=== PATIENT | female | born 1945 | race Caucasian/White ===

== ENCOUNTER → 2017-04-10 13:20 | Outpatient (CLI) | payer MEDICARE, SELFPAY ==
--- NOTE | 2017-04-10 15:08 | NEURO ---
NCS and/or EMG Patient Report Ordering Doctor: Spencer Galvin DATE OF SERVICE: 04/10/17 Bridget Martins is a 71 year old female who presents with chief complaint of numbness in the thumbs bilaterally. Symptoms began spontaneously 2-3 months ago Electrodiagnostic findings: normal median motor and ulnar studies bilaterally. No significant decrease in ulnar conduction across the elbow. Sensory responses are within normal limits. Needle EMG testing reveals no evidence of denervation with normal motor unit action potentials. Electrodiagnostic Impression: This is a normal study in the upper limbs. No evidence of peripheral neuropathy, including carpal tunnel or cubital tunnel syndrome. If there are any further questions please do not hesitate to contact me.
== END ==
PROVIDERS: Family Provider Family Medicine; PCP Family Medicine; Visit Provider Orthopaedic Surgery
DX: R20.2 Paresthesia of skin (principal)
CPT/HCPCS: 95886; 95912

== ENCOUNTER → 2017-05-22 14:11 | Outpatient (CLI) | payer MEDICARE, SELFPAY ==
--- NOTE | 2017-05-22 14:14 | RAD_ITS ---
STUDY: X-RAY CHEST REASON FOR EXAM: Female, 71 years old. numbness and tingling in upper extremities, hx tobacco use TECHNIQUE: Frontal and lateral views of the chest. COMPARISON: January 18, 2015 FINDINGS: Chronic appearing increased interstitial lung markings. There is no demonstrated pleural abnormality. Normal heart size. Normal mediastinum and morgan. Normal visualized pulmonary arteries. There is atherosclerotic calcification of the aortic arch with tortuosity. There are diffuse degenerative changes of the visualized thoracic spine. There is degenerative osteoarthritis of the bilateral shoulders. There is no demonstrated abnormality of the visualized soft tissue structures of the upper abdomen. RAD/Chest PA and Lateral IMPRESSION: There are no acute findings. Electronically Signed: Mello Millan MD at 16:52 EDT , Service support ,
[2017-05-22 15:46] LABS: Absolute Lymphocyte Count 2.22 X10^3/ul (0.83-4.51); Absolute Neutrophil Count 4.7 X10^3/uL (2.0-7.7); Basophil# 0.02 X10^3/uL; Basophil% 0.3 % (0-1); Eosinophil# 0.19 X10^3/uL; Eosinophils% 2.5 % (0-5); Hematocrit 45.4 % (37-47); Hemoglobin 14.8 g/dl (12.0-15.0); Lymphocyte # 2.22 X10^3/ul (4.0); Lymphocyte % 28.9 % (19-41); Mean Corp Hgb Conc 32.6 g/gl (32-36); Mean Corpuscular Hgb 30.1 pg (27.0-32.0); Mean Corpuscular Volume 92.5 fL (81-99); Mean Platelet Vol. 8.7 fl (6.2-12.0); Monocyte# 0.51 X10^3/uL; Monocyte% 6.6 % (0-10); Neutrophil # 4.71 X10^3/uL (2.7-7.7); Neutrophil % 61.3 % (47-70); Platelet Count 279 K/mm3 (150-450); RBC Distribution Width CV 13.3 % (11.6-14.6); RBC Distribution Width SD 44.6 fl (35.1-43.9); Red Blood Count 4.91 M/mm3 (4.2-5.4); White Blood Count 7.7 K/mm3 (4.4-11.0)
[2017-05-22 15:49] LABS: POSITIVE COUNT NO; POSITIVE DIFFERENTIAL NO; POSITIVE MORPHOLOGY NO
[2017-05-22 16:03] LABS: Erythrocyte Sedimentation Rate 11 mm/hr (0-30)
[2017-05-22 16:08] LABS: Vitamin B12 602 pg/mL (211-911)
[2017-05-22 16:19] LABS: ALB/GLOB Ratio 1.3 RATIO (0.9-2.4); AST(SGOT) 15 U/L (15-37); Alanine Aminotransfer ALT/SGPT 25 U/L (13-56); Albumin, Serum 3.8 g/dL (3.2-5.0); Alkaline Phosphatase 95 U/L (45-117); Anion Gap 8 (5-15); BUN 15 mg/dL (7-18); BUN/Creat Ratio 15.8 RATIO (10-20); CRP < 2.90 mg/L (0.0-3.0); Calcium,Total 8.7 mg/dL (8.5-10.1); Chloride 105 mmol/L (98-107); Creatinine, Serum 0.95 mg/dL (0.55-1.02); EST Glomerular Filtration Rate 62 mL/min (>60); Est Glom Filt Rate - Afr Amer 75 mL/min (>60); Globulin 2.9 g/dL (2.2-4.2); Glucose 104 mg/dL (74-106); Potassium 3.5 mmol/L (3.5-5.1); Protein, Total 6.7 g/dL (6.4-8.2); Rheumatoid Factor < 10.0 IU/mL (<15); Sodium Level 142 mmol/L (136-145); Thyroid Stim Hormone (TSH) 1.82 uIU/mL (0.358-3.74)
[2017-05-22 21:50] LABS: Cholesterol 191 mg/dL (200); High Density Lipoprotein 42 mg/dL; Triglycerides 376 mg/dL; Very Low Density Lipoprotein 75 mg/dL (5-40)
[2017-05-24 16:11] LABS: PROEL- A/G Ratio 1.6 (0.7-1.7); PROEL- Alpha-1 Globulin 0.2 g/dL (0.0-0.4); PROEL- Alpha-2 Globulin 0.8 g/dL (0.4-1.0); PROEL- Beta Globulin 0.9 g/dL (0.7-1.3); PROEL- Gamma Globulin 0.6 g/dL (0.4-1.8); PROEL- Globulin, Total 2.5 g/dL (2.2-3.9); PROEL- TOTAL PROTEIN 6.5 g/dL (6.0-8.5)
[2017-05-26 06:17] LABS: ANTINUCLEAR ANTIBODIES DIRECT Negative (Negative)
== END ==
PROVIDERS: Family Provider Family Medicine; PCP Family Medicine; Visit Provider Family Medicine
DX: E78.00 Pure hypercholesterolemia, unspecified (principal); R20.2 Paresthesia of skin; F17.200 Nicotine dependence, unspecified, uncomplicated
CPT/HCPCS: 36415; 71046; 80053; 80061; 82607; 82746; 84165; 84443; 84450; 84460; 85025; 85652; 86038; 86140; 86431

== ENCOUNTER → 2017-09-23 10:07 | Outpatient (CLI) | payer MEDICARE, SELFPAY ==
[2017-09-23 12:34] LABS: AST(SGOT) 22 U/L (15-37); Alanine Aminotransfer ALT/SGPT 31 U/L (13-56); Cholesterol 180 mg/dL (200); High Density Lipoprotein 54 mg/dL; Triglycerides 178 mg/dL; Very Low Density Lipoprotein 36 mg/dL (5-40)
== END ==
PROVIDERS: Family Provider Family Medicine; PCP Family Medicine; Visit Provider Family Medicine
DX: E78.00 Pure hypercholesterolemia, unspecified (principal)
CPT/HCPCS: 36415; 80061; 84450; 84460

== ENCOUNTER → 2018-10-03 | Outpatient (CLI) | payer MEDICARE, SELFPAY ==
[2018-10-03 10:46] LABS: ALB/GLOB Ratio 1.6 RATIO (0.9-2.4); AST(SGOT) 17 U/L (15-37); Alanine Aminotransfer ALT/SGPT 23 U/L (13-56); Alkaline Phosphatase 106 U/L (45-117); Anion Gap 9 (5-15); BUN 20 mg/dL (7-18); BUN/Creat Ratio 20.8 RATIO (10-20); Calcium,Total 9.3 mg/dL (8.5-10.1); Chloride 104 mmol/L (98-107); Cholesterol 183 mg/dL (200); Creatinine, Serum 0.96 mg/dL (0.55-1.02); EST Glomerular Filtration Rate 61 mL/min (>60); Est Glom Filt Rate - Afr Amer 74 mL/min (>60); Globulin 2.5 g/dL (2.2-4.2); Glucose 104 mg/dL (74-106); High Density Lipoprotein 48 mg/dL; Potassium 4.2 mmol/L (3.5-5.1); Protein, Total 6.5 g/dL (6.4-8.2); Sodium Level 142 mmol/L (136-145); Triglycerides 175 mg/dL; Very Low Density Lipoprotein 35 mg/dL (5-40)
== END | disposition home or self-care (01) ==
LOC: MFPLAB 08:20
PROVIDERS: Family Provider Family Medicine; PCP Family Medicine; Referring Provider Family Medicine; Visit Provider Nurse Practitioner Family
DX: Z00.00 Encounter for general adult medical examination without abnormal findings (principal)
CPT/HCPCS: 36415; 80053; 80061

== ENCOUNTER → 2019-04-06 | Outpatient (CLI) | payer MEDICARE, SELFPAY ==
[2019-04-06 12:53] LABS: AST(SGOT) 16 U/L (15-37); Alanine Aminotransfer ALT/SGPT 22 U/L (13-56); Cholesterol 175 mg/dL (200); High Density Lipoprotein 47 mg/dL; Prolactin 10.7 ng/mL; Thyroid Stim Hormone (TSH) 1.82 uIU/mL (0.358-3.74); Triglycerides 139 mg/dL; Very Low Density Lipoprotein 28 mg/dL (5-40)
[2019-04-07 09:13] LABS: DHEA Sulfate 93.4 ug/dL (20.4-186.6)
== END | disposition home or self-care (01) ==
LOC: MFPLAB 09:47
PROVIDERS: PCP Family Medicine; Referring Provider Family Medicine; Visit Provider Family Medicine
DX: E78.5 Hyperlipidemia, unspecified (principal); L65.9 Nonscarring hair loss, unspecified
CPT/HCPCS: 36415; 80061; 82627; 84146; 84443; 84450; 84460; 82626

== ENCOUNTER → 2020-06-07 10:20 | Outpatient (CLI) | payer MEDICARE, SELFPAY ==
[2020-06-07 13:02] LABS: AST(SGOT) 19 U/L (15-37); Alanine Aminotransfer ALT/SGPT 27 U/L (13-56); Cholesterol 167 mg/dL (200); High Density Lipoprotein 49 mg/dL; Triglycerides 139 mg/dL; Very Low Density Lipoprotein 28 mg/dL (5-40)
== END ==
PROVIDERS: PCP Family Medicine; Referring Provider Family Medicine; Visit Provider Family Medicine
DX: E78.00 Pure hypercholesterolemia, unspecified (principal)
CPT/HCPCS: 36415; 80061; 84450; 84460

== ENCOUNTER 2020-11-28 09:00 | Outpatient (RCR) | payer MEDICARE, SELFPAY ==
--- NOTE | 2020-11-23 14:53 | HP.PTEVAL_ITS ---
Patient's Visit Information FELIPA CANALES is a 75 year old F referred to Physical Therapy by Dr. 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 Date of Evaluation: 11/23/20 Physical Therapist: Rustam Mendieta, DPT, OCS, CSCS - Visit Plan Frequency: 1-2x /Week Duration: 2-4 Weeks Plan: 1-2x/week for 2-4 weeks for. postional treatments and adaptation as needed and helpful. - Subjective Can't hear out of L ear. Fullness in L cheek and into ear. Went to doctor adn said she had an ear infection and gave an antibiotic. Also gave a blwoing ex multiple times per day. Did not help the dizzyness completely and gave meds for vertigo adn it made her feel bad with diarrhea and vomiting and nose bleeds. Has been dizzy for a month starting around allergy time. Intermittent and can be brought on with head movement, lying , bending. Causes unsteady feeling and fullness in L ear. Dizzyness lasts seconds. Then feels OK until something else casues it. No falls. No AD needed. Sleep: not great but that is normal for her. Activity are pretty normal and just has to be careful. Was getting it multiple times a gizillion a day. Now maybe 10x/day. Helping pull up carpet and fallon was making her worse. - Objective Walking normal and I without a problem. Cervical AROM WNL and without pain. Balance is good. - R hallpike kellie. + L hallpike kellie, difficult to spot nys tagmus but dizzy especially up from L. - roll test. Treated with Seun ward and taught BD ex for HEP 8 reps daily. - Balance/Special Test Scores Functional Gait Assessment Score: 29 % Disability: 3.3400 Dizziness Score: 6 - Goals Goal 1:: Abolish dizzyness Goal Time Frame: 2-4 Weeks Goal 2:: Pt feel 100% back to normal dizzyness Goal Time Frame: 2-4 Weeks Goal 3:: 0 score on DHI Goal Time Frame: 2-4 Weeks - Rehabilitation Potential Physical Therapy Diagnosis: dizzyness and fullness ear . Rehabilitation Potential: Good - Anticipated Interventions Patient/Client Instruction: Educate patient on: Condition, Plan of Care For the Purpose of:: To increase tolerance to activity/condition/position Comment: positional and vestibular ex. For the Purpose of:: To increase tolerance to activity/condition/position Thank you for the opportunity to evaluate your patient. For Medicare and Medicare HMO plans, please review the plan of care and approve it. It will need to be FAXED BACK to us at [phone] for Medicare purposes. For Medicare only, by signing this I certify the plan of care. Please let me know if there are questions or concerns regarding this plan of care. Physician Signature: Date:
--- NOTE | 2020-11-28 09:14 | HP.PTREVAL ---
Dr. 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 Please see the progress note below for an update on the physical therapy plan of care! Subjective: Did great, not dizzy anynmore. Still can't hear. Had some dizzyness and Saturday minimally but not since. Not avoiding any activities at home or at Yoga. To doctor after therapy. Objective/Function: - B hallpike kellie for nystagmus and dizzyness. - rollt est. Oculomotor unremarkable, no symptoms with head shake or nystagmus, normal pursuit , saccades and VOR horiz and vertical. - head thrust. - ocular tilt. - skew eye deviation. Balance is good today. Plan Plan: Pt doing well at nearly 100% better and not avoiding any actvities, wants to build consistency with this for more than 2 days and will f/u in tow weeks and call prior if worsens and cancel if 100% better. Balance/Gait/Functional tests - Balance/Special Test Scores Functional Gait Assessment Score: 29 % Disability: 3.3400 Dizziness Score: 0 Goals Goal 1:: Abolish dizzyness Goal Time Frame: 2-4 Weeks Goal Progress: Goal Met Goal 2:: Pt feel 100% back to normal dizzyness Goal Time Frame: 2-4 Weeks Goal Progress: Progressing Goal 3:: 0 score on DHI Goal Time Frame: 2-4 Weeks Goal Progress: Goal Met Anticipated Interventions Patient/Client Instruction: Educate patient on: Condition, Plan of Care For the Purpose of:: To increase tolerance to activity/condition/position Comment: positional and vestibular ex. For the Purpose of:: To increase tolerance to activity/condition/position Please do not hesitate to contact me at [phone] by phone or if you have questions or concerns regarding this new plan of care! Sincerely, Rustam Mendieta, MELLYT, OCS, CSCS
--- NOTE | 2021-01-23 14:04 | HP.PT.NRP ---
FELIPA CANALES was seen in my office for initial evaluation on 11/23/20. The following Plan of Care was established for this patient: Initial Frequency: 1-2x /Week Initial Duration: 2-4 Weeks Patient/Client Instruction: Educate patient on: Condition, Plan of Care For the Purpose of:: To increase tolerance to activity/condition/position For the Purpose of:: To increase tolerance to activity/condition/position This patient was last seen in our office 11/28/20. Pertinent comments regarding their Physical therapy will appear below: Pt seen 2 visits for BPPV and was 99% better. She was to f/u two weeks later to ensure progress but did not schedule or attend. It has been nearly two months and I will discontinue due to nonattendance. At this point I will be discontinuing this patient from physical therapy. I would be happy to see this patient again in the future if found appropriate by the physician. Thank you! Rustam Mendieta, DPT, OCS, CSCS Balance/Gait/Functional tests - Balance/Special Test Scores Functional Gait Assessment Score: 29 % Disability: 3.3400 Dizziness Score: 0
== END 2020-11-28 19:00 | disposition home or self-care (01) ==
LOC: PT 09:00
PROVIDERS: PCP Family Medicine; Referring Provider Family Medicine; Visit Provider Family Medicine
DX: H81.10 Benign paroxysmal vertigo, unspecified ear (principal)
CPT/HCPCS: 97161; 97530

== ENCOUNTER 2021-06-21 13:51 | Outpatient (CLI) | payer MEDICARE, SELFPAY ==
[2021-06-21 16:00] LABS: ALB/GLOB Ratio 1.4 RATIO (0.9-2.4); AST(SGOT) 21 U/L (15-37); Alanine Aminotransfer ALT/SGPT 24 U/L (13-56); Albumin, Serum 3.9 g/dL (3.2-5.0); Alkaline Phosphatase 98 U/L (45-117); Anion Gap 4 (5-15); BUN 14 mg/dL (7-18); BUN/Creat Ratio 16.5 RATIO (10-20); Calcium,Total 9.1 mg/dL (8.5-10.1); Chloride 104 mmol/L (98-107); Cholesterol 175 mg/dL (200); Creatinine, Serum 0.85 mg/dL (0.55-1.02); EST Glomerular Filtration Rate 70 mL/min (>60); Est Glom Filt Rate - Afr Amer 84 mL/min (>60); Globulin 2.7 g/dL (2.2-4.2); Glucose 99 mg/dL (74-106); High Density Lipoprotein 46 mg/dL; Potassium 4.4 mmol/L (3.5-5.1); Protein, Total 6.6 g/dL (6.4-8.2); Sodium Level 140 mmol/L (136-145); Triglycerides 165 mg/dL; Very Low Density Lipoprotein 33 mg/dL (5-40)
== END 2021-06-21 23:59 | disposition home or self-care (01) ==
PROVIDERS: PCP Family Medicine; Referring Provider Family Medicine; Visit Provider Nurse Practitioner Family
DX: E78.00 Pure hypercholesterolemia, unspecified (principal)
CPT/HCPCS: 36415; 80053; 80061

== ENCOUNTER → 2022-07-02 | Outpatient (CLI) | payer MEDICARE, SELFPAY ==
[2022-07-02 12:47] LABS: Cholesterol 166 mg/dL (200); Glucose 94 mg/dL (74-106); High Density Lipoprotein 51 mg/dL; Triglycerides 120 mg/dL; Very Low Density Lipoprotein 24 mg/dL (5-40)
== END | disposition home or self-care (01) ==
LOC: MFPLAB 11:03
PROVIDERS: PCP Family Medicine; Visit Provider Nurse Practitioner Family
DX: E78.00 Pure hypercholesterolemia, unspecified (principal)
CPT/HCPCS: 36415; 80061; 82947

== ENCOUNTER → 2022-08-07 | Outpatient (CLI) | payer MEDICARE, SELFPAY ==
[2022-08-09 11:09] LABS: Arsenic 7245 2 ug/L (0-9); Lead, Blood < 1.0 ug/dL (0.0-3.4); Mercury, Blood 85324 < 1.0 ug/L (0.0-14.9)
== END | disposition home or self-care (01) ==
PROVIDERS: PCP Family Medicine; Visit Provider Nurse Practitioner Family
DX: K11.7 Disturbances of salivary secretion (principal)
CPT/HCPCS: 36415

== ENCOUNTER → 2022-11-23 | Outpatient (CLI) | payer MEDICARE, SELFPAY ==
--- NOTE | 2022-11-23 08:06 | MRI_ITS ---
HISTORY: HEARING LOSS LEFT TECHNIQUE: Multiplanar and multisequence MR images of the brain and internal auditory canals were obtained without before and after the intravenous administration of 13 cc clear scan. 421 images. COMPARISON: None. FINDINGS: BRAIN PARENCHYMA: Very mild periventricular white matter changes. No enhancing lesion in the brain parenchyma. No abnormal focus of restricted diffusion. No acute intracranial hemorrhage identified. INTERNAL AUDITORY CANALS: No cerebellopontine angle mass. Symmetric appearance of the fifth, 7th, and 8th cranial nerve complexes without enhancing mass. CSF SPACES: Cerebral ventricles, cortical sulci, and other extra-axial CSF spaces within normal limits in size. No midline shift or other significant mass effect. No extra-axial fluid collection. VASCULAR SYSTEM: Major intracranial flow voids preserved. OTHER: No significant air fluid levels in the paranasal sinuses or mastoid air cells. Symmetric orbital contents. Bilateral lens resections. MRI/Brain W/WO Contrast IMPRESSION: No evidence for enhancing intracranial mass or acute infarct. Unremarkable internal auditory canals. Very mild chronic small vessel ischemic gliosis. Electronically Signed: Shabana Donald MD at 15:59 EDT ,
[2022-11-23 08:50] LABS: CREATININE FINGERSTICK 1.1 mg/dL (0.55-1.02)
== END | disposition home or self-care (01) ==
PROVIDERS: PCP Family Medicine; Referring Provider Otolaryngology; Visit Provider Otolaryngology
DX: H91.22 Sudden idiopathic hearing loss, left ear (principal)
CPT/HCPCS: 70553; A9575

== ENCOUNTER → 2023-07-09 | Outpatient (CLI) | payer MEDICARE, SELFPAY ==
[2023-07-09 16:17] LABS: AST(SGOT) 17 U/L (15-37); Alanine Aminotransfer ALT/SGPT 22 U/L (13-56); Cholesterol 173 mg/dL (200); High Density Lipoprotein 54 mg/dL; Triglycerides 158 mg/dL; Very Low Density Lipoprotein 32 mg/dL (5-40)
== END | disposition home or self-care (01) ==
LOC: MFPLAB 14:08
PROVIDERS: PCP Family Medicine; Visit Provider Family Medicine
DX: E78.00 Pure hypercholesterolemia, unspecified (principal)
CPT/HCPCS: 36415; 80061; 84450; 84460

== ENCOUNTER → 2023-12-16 | Outpatient (CLI) | payer MEDICARE, SELFPAY ==
--- NOTE | 2023-12-16 08:55 | RAD_ITS ---
INDICATION: cough EXAMINATION/TECHNIQUE: X-RAY - XR Chest 2 Views COMPARISON: May 22, 2017 FINDINGS: LINES/DEVICES: None. LUNGS: No consolidation, edema or effusion. No pneumothorax. MEDIASTINUM AND CARDIOVASCULAR STRUCTURES: Cardiac silhouette not enlarged. Central airways and mediastinal contour are unremarkable. BONES AND SOFT TISSUES: Unremarkable. RAD/Chest PA and Lateral IMPRESSION: No radiographic evidence of acute cardiopulmonary disease. Electronically Signed: Mike Auguste DO at 16:53 EDT ,
== END | disposition home or self-care (01) ==
PROVIDERS: PCP Family Medicine
DX: R05.3 Chronic cough (principal)
CPT/HCPCS: 71046

== ENCOUNTER → 2024-07-09 | Outpatient (CLI) | payer MEDICARE, SELFPAY ==
[2024-07-09 13:19] LABS: Cholesterol 166 mg/dL (<=200); High Density Lipoprotein 47 mg/dL; Low Density Lipoprotein Calc. 95 mg/dL; Triglycerides 118 mg/dL; Very Low Density Lipoprotein 24 mg/dL (5-40); cholesterol:hdl ratio screen 3.51
== END | disposition home or self-care (01) ==
LOC: MFPLAB 09:41
PROVIDERS: PCP Family Medicine
DX: Z13.220 Encounter for screening for lipoid disorders (principal)
CPT/HCPCS: 36415; 80061

== ENCOUNTER 2024-08-17 07:43 | Emergency (ER) | payer MEDICARE, SELFPAY ==
[2024-08-17 07:45] VITALS: BP 158/83; PULSE 67; RESP 16; TEMP 36.8; O2SAT 97; BMI 25.2
--- NOTE | 2024-08-17 07:57 | EDS_ITS ---
HPI HPI - GI History of Present Illness Chief Complaint: Constipation Narrative Narrative: 78-year-old female presents with her because of constipation. She states she has not had a bowel movement in 9 days. This is unusual for her as she states she usually has a bowel movement daily. She has the feeling that she has to go but she feels full. No prior abdominal surgeries. No fevers or chills. She is nauseated but has not vomited. She states that she has gaseous. She has tried MiraLAX and a stool softener. No exacerbating or alleviating factors. PFSH PFSH Home Medications ?Medication ?Instructions ?Recorded ?Last Taken ?Type cetirizine 10 mg capsule (Zyrtec) 10 mg PO DAILY 02/08 Unknown History simvastatin 20 mg tablet 20 mg PO QHS 02/08/14 Unknow n History peg 3350-electrolytes 236 240 ml PO Q10M PRN #4,000 mL 08/17/24 Unknown Rx gram-22.74 gram-6.74 gram-5.86 gram solution (Golytely) Allergy/AdvReac Type Severity Reaction Status Date / Time bee venom protein (honey bee) Allergy Swelling Verified 08/17/24 07:45 iodine Allergy NEEDS Verified 08/17/24 07:45 FOLLOW-UP Opioids - Morphine Analogues Allergy Vomiting Verified 08/17/24 07:45 Seasonal Allergies: Uncoded Allergy NEEDS Verified 08/17/24 07:45 FOLLOW-UP prednisone AdvReac Intermediate Other Verified 08/17/24 07:45 aspartame AdvReac Other Verified 08/17/24 07:45 sulfamethoxazole (From AdvReac Other Verified 08/17/24 07:45 Bactrim) trimethoprim (From Bactrim) AdvReac Other Verified 08/17/24 07:45 Family History Other Dental infection H/O tooth extraction Social History Smoking Status: Current every day smoker tobacco type: cigarettes alcohol intake: never ROS ROS ED ROS Narrative Review of systems positive for nausea and constipation. Positive abdominal pain mainly in the left lower quadrant. Feels gaseous. No fevers or chills. No vomiting. No exacerbating or alleviating factors. No dysuria or hematuria. EXAM Physical Exam Narrative Exam Narrative: Afebrile. Vital signs noted. Nontoxic-appearing. Cardiovascular examination reveals a regular rate and rhythm. Lungs are clear to auscultation bilaterally. Abdomen is soft with tenderness in the left lower quadrant to diffusely. Positive bowel sounds. No rigidity, no guarding or rebound. Neurological examination nonfocal, nonlateralizing. Const Vital Signs: 08/17/24 07:45 Temperature 98.3 F Temperature Source Oral Pulse Rate 67 Respiratory Rate 16 Blood Pressure 158/83 H Blood Pressure Mean 108 Pulse Ox 97 Oxygen Delivery Method Room Air MDM MDM MDM Narrative Medical decision making narrative: The differential diagnosis includes but not limited to partial small bowel obstruction versus bowel obstruction versus diverticulitis versus colitis versus constipation. I reviewed her prior records. She really has not had emergency department visits. She states this has not happened to her previously. I do feel that she merits CT imaging and laboratory work. I reviewed her laboratory work and she has normal white count of 8.6 with hemoglobin 15.8, slightly hemoconcentrated platelet count normal at 265. Electrolyte panel is grossly unremarkable except for glucose of 108 with a normal anion gap of 10. Alk phos slightly elevated at 105 which I think is nonspecific. I reviewed the radiology report of the CT without contrast as she has an allergy to iodine and reportedly had a reaction 20 years ago. There is no acute process, no obstruction. According to radiology consistent with constipation. I did offer to perform a rectal examination but there is no evide nce of fecal impaction in the rectum on the CT scan. Instead, patient will be given a prescription for GoLytely as requested. She was told that she may only need to drink a quarter to half of the bottle and that she does not need to finish the entire bottle of GoLytely. She will administer herself 240 mL every 10 minutes until she has a bowel movement. She was also told the risk of dehydration and electrolyte imbalance with the use of the GoLytely. She will follow-up with her primary care provider. Return instructions were reviewed. I do not feel she requires admission or hospitalization currently. Disposition is discharged home in stable condition. History & Record Review Discussion w/independent historian: Patient and Family Lab Data Attestation: I reviewed the patient's lab results. Labs: Laboratory Results - last 24 hr 08/17/24 07:48 WBC 8.6 RBC 5.24 Hgb 15.8 H Hct 47.1 H MCV 89.9 MCH 30.2 MCHC 33.5 RDW Std Deviation 40.6 RDW Coeff of Dian 12.3 Plt Count 265 MPV 7.9 Immature Gran % (Auto) 0.500 Neut % (Auto) 70.1 H Lymph % (Auto) 18.1 L [place] % (Auto) 7.8 Eos % (Auto) 3.0 Baso % (Auto) 0.5 Absolute Neuts (auto) 6.0 Absolute Lymphs (auto) 1.56 Nucleated RBC % 0 Sodium 141 Potassium 4.1 Chloride 103 Carbon Dioxide 27.5 Anion Gap 10 BUN 13 Creatinine 0.96 Estim Creat Clear Calc 45.09 L Est GFR (MDRD) Non-Af 61 BUN/Creatinine Ratio 14.0 Glucose 108 H Calcium 9.8 Total Bilirubin 0.64 AST 22 ALT 11 Alkaline Phosphatase 105 H Total Protein 6.9 Albumin 4.4 Globulin 2.5 Albumin/Globulin Ratio 1.8 Radiography Diagnostic Testing: Clinical Impression(s) from Imaging Studies Abdomen/Pelvis CT 08/17/24 08:12 IMPRESSION: No acute process detected. Reading [facility] Discharge Plan Triage Chief Complaint: Constipation ED Provider: Sarmad Sheldon Dx/Rx/DC Orders Clinical Impression: Constipation, Abdominal discomfort Instructions: ED Constipation (Adult) Prescriptions: New peg 3350-electrolytes [Golytely] 236-22.74-6.74 -5.86 gram recon soln 240 ml PO Q10M PRN Qty: 4000 0RF Rx Instructions: until fecal effluent is clear No Action simvastatin 20 MG tablet 20 mg PO QHS cetirizine [Zyrtec] 10 MG capsule 10 mg PO DAILY Primary Care Provider: Bradly Turner Referrals: Bradly Turner MD [Primary Care Provider] - 3-5 Days if not improving Activity Restrictions/Additional Instructions: Return to the emergency department with fever, increased pain, vomiting, new or worsening symptoms. You may want to start out by only drinking a quarter or half of the bottle of GoLytely. Drink 240 mL every 10 minutes until you have a bowel movement then stop. Print Language: Estonian Disposition Disposition: Home, Self Care
[2024-08-17] MEDS: 0.9% Normal Saline (1000mL) 1,000 ML 999 ML IV (08:00)
[2024-08-17 08:05] LABS: Absolute Lymphocyte Count 1.56 X10^3/uL (0.83-4.51); Basophil# 0.04 X10^3/uL; Basophil% 0.5 % (0-1); Eosinophil# 0.26 X10^3/uL; Hematocrit 47.1 % (37-47); Hemoglobin 15.8 g/dL (12.0-15.0); Lymphocyte # 1.56 X10^3/ul (0.83-4.51); Lymphocyte % 18.1 % (19-41); Mean Corp Hgb Conc 33.5 g/dL (32-36); Mean Corpuscular Hgb 30.2 pg (27.0-32.0); Mean Corpuscular Volume 89.9 fL (81-99); Mean Platelet Vol. 7.9 fl (6.2-12.0); Monocyte# 0.67 X10^3/uL; Monocyte% 7.8 % (0-10); NRBC Flagged by Analyzer 0 % (0-5); Neutrophil # 6.04 X10^3/uL (2.7-7.7); Neutrophil % 70.1 % (47-70); Platelet Count 265 K/mm3 (150-450); RBC Distribution Width CV 12.3 % (11.6-14.6); RBC Distribution Width SD 40.6 fl (35.1-43.9); Red Blood Count 5.24 M/mm3 (4.2-5.4); White Blood Count 8.6 K/mm3 (4.4-11.0)
--- NOTE | 2024-08-17 08:12 | CT_ITS ---
PROCEDURE: ABDOMEN/PELVIS WITHOUT CONT 08/17/2024 REASON FOR EXAM: PAIN, CONSTIPATION TECHNIQUE: Abdomen and pelvis CT without intravenous contrast. Noncontrast technique limits evaluation of the abdominal and pelvic viscera. Coronal and Sagittal reconstruction series were provided. One or more dose reduction techniques were used (e.g., Automated exposure control, adjustment of the mA and/or kV according to patient size, use of iterative reconstruction technique). PATIENT PREPARATION: Per protocol ORAL CONTRAST TYPE: None. AMOUNT: None mL COMPARISON: None FINDINGS: Lung bases: Lungs are clear Liver: Unremarkable Gallbladder: Unremarkable Spleen: Normal size and appearance. Pancreas: Normal Adrenals: Normal Kidneys: Normal position and contour. No hydronephrosis Bladder: Normal Reproductive Organs: Not seen well Bowel: Oral caliber and appearance. Mildly prominent volume of feces consistent with constipation Appendix: No inflammatory process is present in the right lower quadrant. Lymph nodes: No adenopathy. Vasculature: Moderate aortic calcification. No stenosis or aneurysm. Peritoneum / Retroperitoneum: No free air or ascites Bones: No aggressive lesions. CT/Abdomen/Pelvis without Cont IMPRESSION: No acute process detected. Reading [facility]
[2024-08-17 08:37] LABS: ALB/GLOB Ratio 1.8 RATIO (0.9-2.4); AST(SGOT) 22 U/L (<=31); Alanine Aminotransfer ALT/SGPT 11 U/L (<=34); Albumin, Serum 4.4 g/dL (3.4-4.8); Alkaline Phosphatase 105 U/L (35-104); Anion Gap 10 (5-15); BUN 13 mg/dL (4-19); Calcium,Total 9.8 mg/dL (7.6-11.0); Carbon Dioxide 27.5 mmol/L (21.0-32.0); Chloride 103 mmol/L (98-108); Creatinine, Serum 0.96 mg/dL (0.70-1.20); EST Glomerular Filtration Rate 61 (>60); Estimated Creatinine Clearance 45.09 ml/min (50-250); Globulin 2.5 g/dL (2.2-4.2); Glucose 108 mg/dL (70-99); Potassium 4.1 mmol/L (3.3-5.1); Protein, Total 6.9 g/dL (5.9-8.4); Sodium Level 141 mmol/L (133-145); Total Bilirubin 0.64 mg/dL (0.00-1.30)
--- OUTSIDE RECORDS SUMMARY | 2024-08-17 08:40 | XMS RPT_ITS | CCD ---
Author Organization [facility] Care Team Providers Care Rig Superintendent Name Role Phone Dr. Olivia Zavala Primary Care Provider [phone] Dr. Olivia Zavala Referring Provider [phone] Dinesh GOEMZ, PA Alycia Liriano Attending Provider Luis Vasquez Referring Unavailable Olivia Zavala Primary Care Unavailable Luis Vasquez Attending Unavailable Bradly Turner Primary Care Unavailable Luis Vasquez Attending Unavailable Luis Vasquez Referring Unavailable MARINA MALIK Attending Unavailable Allergies Allergy Classification Reported Allergen(s) Allergy Type Date of Onset Reaction(s) Facility (5 sources) Aspartame Drug Allergy 02-09-20 14 Other [facility] (1 source) Bee/Wasp/Ant venom Allergy to substance 02-09-20 14 Swelling [facility] Work Phone: (6 sources) Iodine; Translations: [iodine] Drug Allergy 02-09-20 14 Other, NEEDS FOLLOW-UP [facility] (1 source) Seasonal allergy Allergy to substance 02-09-20 14 Other [facility] Work Phone: (5 sources) Sulfamethoxazole Drug Allergy 02-09-20 14 Other [facility] (5 sources) Trimethoprim Drug Allergy 02-09-20 14 Other [facility] (3 sources) PAIN MEDS Propensity to adverse reactions 02-09-20 14 Vomiting [facility] (4 sources) bee venom protein (honey bee) Allergy to substance 06-25-19 23 Swelling [facility] (5 sources) Seasonal Allergies: Uncoded; Translations: [Seasonal Allergies: Uncoded] Allergy to substance 06-25-19 23 NEEDS FOLLOW-UP [facility] (2 sources) Opioids - Morphine Analogues Allergy to substance 11-07-19 Vomiting [facility] (1 source) Aspartame Drug Allergy 06-25-19 [facility] Repository (1 source) Sulfamethoxazole Drug Allergy 06-25-19 [facility] Rep[facility] (1 source) Trimethoprim Drug Allergy 06-25-19 [facility] Rep[facility] (1 source) Opioids - Morphine Analogues Drug allergy (disorder) 11-07-19 [facility] Repository (1 source) bee venom protein (honey bee) Drug allergy (disorder) 06-25-19 [facility] Repository (1 source) Codeine; Translations: [CODEINE] Drug Allergy 12-09-19 [facility] Repository (1 source) predniSONE; Translations: [PREDNISONE] Drug Allergy 07-31-19 [facility] Repository (1 source) Seasonal allergy; Translations: [SEASONAL ALLERGIES] Propensity to adverse reactions (disorder) 07-31-19 [facility] Repository (1 source) OXYCODONE-ASPIRIN; Translations: [OXYCODONE-ASPIRIN] Propensity to adverse reactions to drug (disorder) 12-09-19 [facility] Repository Medications Current Medications Medication Drug Class(es) Dates Sig (Normalized) Sig (Original) cetirizine hydrochloride 10 mg oral capsule (5 sources) Histamine-1 Receptor Antagonist Start: 02-08-2014 take 1 capsule by mouth once daily Cetirizine (Zyrtec) 10 MG capsule Active 10 MG PO DAILY February 08, 2014 1:00am simvastatin 20 mg oral tablet (5 sources) HMG-CoA Reductase Inhibitor Start: 02-08-2014 take 20 mg by mouth at bedtime Simvastatin Active 20 MG PO AT BEDTIME February 08, 2014 1:00am Problems Active Problems Problem Classification Problem Date Documented Da te Episodic/Chronic Diseases of mouth; excluding dental (1 source) Disturbances of salivary secretion; Translations: [Excessive salivation] Onset: 07-30-2024 Episodic Other ear and sense organ disorders (4 sources) Ear sensations - finding; Translations: [Other specified disorders of left ear] 06-24-2022 Episodic Other ear and sense organ disorders (2 sources) Other specified disorders of left ear; Translations: [Other disorders of ear] 06-24-2022 Episodic Other screening for suspected conditions (not mental disorders or infectious disease) (1 source) Encounter for screening for lipoid disorders; Translations: [Encounter for screening for lipoid disorders] Onset: 07-11-2024 Episodic Past or Other Problems Problem Classification Problem Date Documented Da te Episodic/Chronic Other lower respiratory disease (1 source) Chronic cough; Translations: [Chronic cough] Onset: 01-09-2024 Episodic Results Test Name Value Interpretation Reference Range Facility OV 07-30-2024 CNOV Office Visit (OTOLMM ) ALLYFELIPA ROBERSON ([id number]) 1945 F Date Time Provider Department 07/30/24 10:15 AM MARINA MALIK OTOLMM During your visit today, we recorded the following information about you: Marina Malik MD 07/30/2024 11:06 AM Signed HPI Felipa Alaniz Ally is a 78 year old female who presents with complaint of excessive saliva. Patient feels as though she is drooling all the time due to excessive saliva patient has tried medicines such as meclizine that dried her out too much. Patient was also given a medicine by her paradigm asked but apparently was contraindicated due to her age. ROS General Weight loss: No Fatigue: No Night sweats:No Cardiac Chest pain:No Fast heart rate:No Swelling in the feet:No Respiratory Short of breath:No Cough:No Wheezing:No Gastrointestinal Nausea:No Vomiting:No Indigestion:No Past medical history, family history, and social history reviewed. PE There were no vitals taken for this visit. General: Patient is awake, alert, NAD. Voice is normal. Skin: normal Eyes: Extraocular motion and Gaze is normal. Ears: Right external auditory canal is normal. TMJ: normal. Right tympanic membranes normal. Left external auditory canal is normal. Left tympanic membrane normal. Nose: Septum is normal. Turbinates are normal. Nasopharynx:normal Oral Cavity/Oropharynx: Lips normal Dentition normal Tongue normal. Tonsils normal. Palate and uvula normal. Pharynx posterior normal Hypopharynx: Base of tongue normal Pyriform sinus normal. Larynx: Vocal cords normal. Epiglottis normal. Post cricoid normal. Salivary glands: Parotid normal. Submandibular and sublingual normal. Thyroid: normal. Lymphatic/Neck: Lymph nodes normal. Neurologic: Facial nerve normal. ASSESSMENT/PLAN: 1. Excessive salivation - ICD9: 527.7, ICD10: K11.7 Reassure follow-up as needed Marina Malik MD Findings will be communicated to the referring physician via mail or electronic medical record. Allergies As of Date: 07/30/2024 Noted Allergy Reaction CODEINE 12/08/2004 HAY FEVER (SEASONAL ALLERGIES) 07/30/2024 14 - Other: See Comments PERCODAN (OXYCODONE-ASPIRIN) 12/08/2004 PREDNISONE 07/30/2024 1 - Mental Status Change Date Reviewed: 07/30/2024 Reviewed by: Wendi Arcos MA - Fully Assessed Reason for Visit: Consult [173] Cmt: salivary glands/ excessive saliva, sx since 11/2022- started after having a tooth pulled Primary Visit Diagnosis:Excessive salivation [K11.7] Prescriptions as of 07/30/2024 - simvastatin (ZOCOR) 20 mg tablet Take 10 mg by mouth once daily. - cetirizine (ZYRTEC) 10 mg tablet Take 10 mg by mouth once daily. Problem List As Of Date: 07/30/2024 (None) Encounter Status:Closed by MARINA MALIK on 07/30/24 Normal [facility] Lipid Profileon 07-09-2024 CHOL:HDL 3.51 Normal [facility] Comment on above: Order Comment: Order Date: 07/09/24 Order Info: [id number] - LIPID Performed By: #### L 500.4109 #### [facility] [place], [address] Cholesterol [Mass/Vol] 166 mg/dL Normal <=200 [facility] Comment on above: Order Comment: Order Date: 07/09/24 Order Info: [id number] - LIPID Result Comment: Chol esterol level, Desirable <200 mg/dL Borderline high cholesterol 200-239 mg/dL High cholesterol >=240 mg/dL Recommendations of the NCEP Adult Treatment Panel for the following risk-cutoff thresholds for the [place] Citizen [place] population. Performed By: #### L 500.4100 #### [facility] [address] [place], [address] Cholesterol in HDL [Mass/Vol] 47 mg/dL Normal [facility] Comment on above: Order Comment: Order Date: 07/09/24 Order Info: [id number] - LIPID Result Comment: [place] onal Cholesterol Education Program (NCEP) guidelines: <40 mg/dL: Low HDL-cholesterol (major risk factor for CHD) >= 60 mg/dL: High HDL-cholesterol (negative risk factor for CHD) HDL-cholesterol is affected by a number of factors, e.g. smoking, exercise, hormones, sex and age. Performed By: #### L 500.4100 #### [facility] [address] [place], [address] Cholesterol in LDL [Mass/Vol] 95 mg/dL Normal [facility] Comment on above: Order Comment: Order Date: 07/09/24 Order Info: [id number] - LIPID Result Comment: Bord crjnpx=909-449 mg/dL Higher Zbyl=744 mg/dL or greater Performed By: #### L 500.4100 #### [facility] [address] [place], [address] Cholesterol in VLDL [Mass/Vol] 24 mg/dL Normal 5-40 [facility] Comment on above: Order Comment: Order Date: 07/09/24 Order Info: [id number] - LIPID Performed By: #### L 500.4100 #### [facility] [address] [place], [address] Triglyceride [Mass/Vol] 118 mg/dL Normal [facility] Comment on above: Order Comment: Order Date: 07/09/24 Order Info: [id number] - LIPID Result Comment: The drugs N-Acetylcysteine and Metamizole may falsely depress this assay. Normal range: <150 mg/dL Borderline High: 150-199 mg/dL High: 200-499 mg/dL Very High: >500 mg/dL Performed By: #### L 500.4100 #### [facility] [address] [place], [place], [address] Chest PA and Lateralon 12-15 Chest PA and Lateral [facility] [address] [place] [address] Chest PA and Lateral MR#: [id number] Acct: [id number] Name: FELIPA CANALES Rep #: [id number] : 1945 F 78 From: Mike Auguste DO PCP: Dr. Olivia Zavala MD Status: [facility] Study: Chest PA and Lateral Date of Exam: 12/16/23 Exam# [id number] Ordering Dr: Luis Vasquez NP, NP :[id number] INDICATION: cough EXAMINATION/TECHNIQUE: X-RAY - XR Chest 2 Views COMPARISON: May 22, 2017 FINDINGS: LINES/DEVICES: None. LUNGS: No consolidation, edema or effusion. No pneumothorax. MEDIASTINUM AND CARDIOVASCULAR STRUCTURES: Cardiac silhouette not enlarged. Central airways and mediastinal contour are unremarkable. BONES AND SOFT TISSUES: Unremarkable. RAD/Chest PA and Lateral IMPRESSION: No radiographic evidence of acute cardiopulmonary disease. Electronically Signed: Mike Auguste DO at 16:53 EDT , CC: Luis Vasquez; Dr. Olivia Zavala MD Drilling Superintendent: Signed Normal [facility] Basophil percentageOrdered B y: Olivia Zavala on 07-09-2023 Cholesterol [Mass/Vol] 173 mg/dL <200 [facility] Comment on above: <200 mg/dL Desirable 200-240 mg/dL Borderline >240 mg/dL High Risk Triglyceride [Mass/Vol] 158 mg/dL <199 [facility] Comment on above: The drugs N-Acetylcy steine and Metamizole may falsely depress this assay.Serum Triglycerides Reference Interval Normal <150 mg/dL Borderline high 150 - 199 mg/dL High 200 - 499 mg/dL Very High > or = 500 mg/dL Laboratory - Chemistry and C hemistry - challengeOrdered By: Olivia Zavala on 07-09-2023 ALT [Catalytic activity/Vol] 22 U/L 13-56 [facility] Cholesterol in HDL [Mass/Vol] 54 mg/dL >40 [facility] Comment on above: The drugs N-Acetylcy steine and Metamizole may falsely depress this assay. Reference Range HDL <40 mg/dL Low HDL Cholesterol HDL >or= 60 mg/dL High HDL Cholesterol Cholesterol in LDL [Mass/Vol] 87 mg/dL 0-130 [facility] No Panel InformationOrdered By: Olivia Zavala on 07-09-2023 VLDL Cholesterol 32 mg/dL 5-40 [facility] Thin prep Papanicolaou smear with manual screeningOrdered By: Olivia Zavala on 07-09-2023 Thin prep Papanicolaou smear with manual screening 17 U/L 15-37 [facility] Basophil percentageOrdered B y: Tyrone Cardoso on 11-23-2022 Creatinine [Mass/Vol] 1.1 mg/dL 0.55-1.02 [facility] Laboratory - Chemistry and C hemistry - challengeOrdered By: Tryone Cardoso on 11-23-2022 GFR/1.73 sq M.predicted among non-blacks MDRD (S/P/Bld) [Vol rate/Area] 50.0000 mL/min/{1.73_m2} >60 [facility] Basophil percentageOrdered B y: Yamilte Byers on 08-07-2022 Basophil percentage 2 ug/L 0-9 [facility] Comment on above: Detection Limit = 1 Blood mercury measurement (m ass/volume)Ordered By: Yamilet Byers on 08-07-2022 Mercury (Bld) [Mass/Vol] < 1.0 ug/L 0.0-14.9 [facility] Comment on above: Environmental Exposu re: <15.0 Occupational Exposure: TERA - Inorganic Mercury: 15.0 Detection Limit = 1.0 No Panel InformationOrdered By: Yamilet Byers on 08-07-2022 Cadmium 1.0 ug/L 0.0-1.2 [facility] Comment on above: Environmental Exposu re: Nonsmokers 0.3 - 1.2 Smokers 0.6 - 3.9 Occupational Exposure: OSHA Cadmium Std 5.0 TERA 5.0 Detection Limit = 0.5Performed at: [address] [id number] Director: Enoc Montaño MD, Phone: [phone] Lead < 1.0 ug/dL 0.0-3.4 [facility] Comment on above: Testing performed by Inductively coupled plasma/MassSpectrometry. Environmental Exposure: WHO Recommendation <5.0 Occupational Exposure: OSHA Lead Std 40.0 TERA 30.0 Detection Limit = 1.0 Miscellaneous Test See comment [facility] Comment on above: TEST RESULT LIMITSPa lladium, Serum/Plasma None Detected mcg/LReporting Limit: 0.10 mcg/LNormally: Less than 0.1 mcg/L.Analysis by Inductively Coupled Plasma/MassSpectrometry (ICP/MS)Specimens for elemental testing should be collected incertified metal-free containers. Elevated results forelemental testing may be caused by environmentalcontamination at the time of specimen collection andshould be interpreted accordingly. It is recommendedthat unexpected elevated results be verified bytesting another specimen in a trace metal freecontainer.This test was developed and its performancecharacteristics determined by [facility]. It has notbeen cleared or approved by the US Food and DrugAdministration. TESTING PERFORMED AT [facility]. ORIGINAL REPORT ON FILE IN LAB CONTAINS ADDITIONAL TEST SITE INFORMATION. ____ Basophil percentageOrdered B y: Yamilet Byers on 07-02-2022 Cholesterol [Mass/Vol] 166 mg/dL <200 [facility] Comment on above: <200 mg/dL Desirable 200-240 mg/dL Borderline >240 mg/dL High Risk Glucose [Mass/Vol] 94 mg/dL 74-106 [facility] Triglyceride [Mass/Vol] 120 mg/dL <199 [facility] Comment on above: The drugs N-Acetylcy steine and Metamizole may falsely depress this assay.Serum Triglycerides Reference Interval Normal <150 mg/dL Borderline high 150 - 199 mg/dL High 200 - 499 mg/dL Very High > or = 500 mg/dL Serum or plasma cholesterol in HDL measurement (mass/volume)Ordered By: Yamilet Byers on 07-02-2022 Cholesterol in HDL [Mass/Vol] 51 mg/dL >40 [facility] Comment on above: The drugs N-Acetylcy steine and Metamizole may falsely depress this assay. Reference Range HDL <40 mg/dL Low HDL Cholesterol HDL >or= 60 mg/dL High HDL Cholesterol Serum or plasma cholesterol in VLDL measurement (mass/volume)Ordered By: Yamilet Byers on 07-02-2022 Cholesterol in VLDL [Mass/Vol] 24 mg/dL 5-40 [facility] Serum or plasma low density lipoprotein (LDL) cholesterol measurement (mass/volume)Ordered By: Yamilet Byers on 07-02-2022 Cholesterol in LDL [Mass/Vol] 91 mg/dL 0-130 [facility] Basophil percentageon 2021 Bilirubin [Mass/Vol] 0.90 mg/dL 0.20-1.00 [facility] Work Phone: Comment on above: For patients on eltr ombopag therapy, use of Dimension [place] TBIL is not recommended. Chloride [Moles/Vol] 104 mmol/L 98-107 [facility] Work Phone: Cholesterol [Mass/Vol] 175 mg/dL <200 [facility] Work Phone: Comment on above: <200 mg/dL Desirable 200-240 mg/dL Borderline >240 mg/dL High Risk Glucose [Mass/Vol] 99 mg/dL 74-106 [facility] Work Phone: Potassium [Moles/Vol] 4.4 mmol/L 3.5-5.1 [facility] Work Phone: Comment on above: Slight Hemolysis, Re sult may be falsely increased. Protein [Mass/Vol] 6.6 g/dL 6.4-8.2 [facility] Work Phone: Sodium [Moles/Vol] 140 mmol/L 136-145 [facility] Work Phone: Triglyceride [Mass/Vol] 165 mg/dL [facility] Work Phone: Comment on above: The drugs N-Acetylcy steine and Metamizole may falsely depress this assay.Serum Triglycerides Reference Interval Normal <150 mg/dL Borderline high 150 - 199 mg/dL High 200 - 499 mg/dL Very High > or = 500 mg/dL Laboratory - Chemistry and C hemistry - challengeon 06-21-2021 ALP [Catalytic activity/Vol] 98 U/L 45-117 [facility] Work Phone: ALT [Catalytic activity/Vol] 24 U/L 13-56 [facility] Work Phone: CO2 [Moles/Vol] 32.0 mmol/L 21.0-32.0 [facility] Work Phone: Globulin (S) [Mass/Vol] 2.7 g/dL 2.2-4.2 [facility] Work Phone: Urea nitrogen/Creatinine [Mass ratio] 16.5 mg/mg 10-20 [facility] Work Phone: No Panel Informationon 06-21 Estimated GFR (MDRD) Amer 84 mL/min >60 [facility] Work Phone: Comment on above: GFR Calc Estimated GFR (MDRD) Non-Af Amer 70 mL/min >60 [facility] Work Phone: Comment on above: Non- GFR Calc Serum or plasma albumin alina urement (mass/volume)on 06-21-2021 Albumin [Mass/Vol] 3.9 g/dL 3.2-5.0 [facility] Work Phone: Serum or plasma albumin/glob ulin mass ratioon 06-21-2021 Albumin/Globulin [Mass ratio] 1.4 {ratio} 0.9-2.4 [facility] Work Phone: Serum or plasma calcium alina urement (mass/volume)on 06-21-2021 Calcium [Mass/Vol] 9.1 mg/dL 8.5-10.1 [facility] Work Phone: Serum or plasma cholesterol in HDL measurement (mass/volume)on 06-21-2021 Cholesterol in HDL [Mass/Vol] 46 mg/dL [facility] Work Phone: Comment on above: The drugs N-Acetylcy steine and Metamizole may falsely depress this assay. Reference Range HDL <40 mg/dL Low HDL Cholesterol HDL >or= 60 mg/dL High HDL Cholesterol Serum or plasma cholesterol in VLDL measurement (mass/volume)on 06-21-2021 Cholesterol in VLDL [Mass/Vol] 33 mg/dL 5-40 [facility] Work Phone: Serum or plasma creatinine m easurement (mass/volume)on 06-21-2021 Creatinine [Mass/Vol] 0.85 mg/dL 0.55-1.02 [facility] Work Phone: Comment on above: The validity of the calculated GFR & GFRAA in patients over 70 years has not been determined. Clinical correlation is essential. Serum or plasma low density lipoprotein (LDL) cholesterol measurement (mass/volume)on 06-21-2021 Cholesterol in LDL [Mass/Vol] 96 mg/dL 0-130 [facility] Work Phone: Serum or plasma urea nitroge n measurement (mass/volume)on 06-21-2021 Urea nitrogen [Mass/Vol] 14 mg/dL 7-18 [facility] Work Phone: Thin prep Papanicolaou smear with manual screeningon 06-21-2021 Thin prep Papanicolaou smear with manual screening 21 U/L 15-37 [facility] Work Phone: Comment on above: Slight Hemolysis, Re sult may be falsely increased. Thin prep Papanicolaou smear with manual screening 4 5-15 [facility] Work Phone: Vital Signs Date Time Vital Sign Value Performing Clinician Cosme husain 06-24-2022 13:18-0400 Body height 162.[address] Olivia Zavala Work Phone: [facility] 06-24-2022 13:18-0400 Body mass index (BMI) [Ratio] 26.2 kg/m2 Dr. Olivia Zavala Work Phone: [facility] 06-24-2022 13:18-0400 Body temperature 98.2 [degF] Dr. Olivia Zavala Work Phone: [facility] 06-24-2022 13:18-0400 Body weight 69.[address] Olivia Zavala Work Phone: [facility] 06-24-2022 13:18-0400 Diastolic blood pressure 70 mm[Hg] Dr. Olivia Zavala Work Phone: [facility] 06-24-2022 13:18-0400 Heart rate 74 /min Dr. Olivia Zavala Work Phone: [facility] 06-24-2022 13:18-0400 Respiratory rate 16 /min Dr. Olivia Zavala Work Phone: [facility] 06-24-2022 13:18-0400 SaO2% (BldA) [Mass fraction] 96 % Dr. Olivia Zavala Work Phone: [facility] 06-24-2022 13:18-0400 Systolic blood pressure 122 mm[Hg] Dr. Olivia Zavala Work Phone: [facility] Encounters Encounter Date Encounter Type Care Provider Facility Start: 07-30-2024 End: 07-30-2024 ambulatory MARINA MALIK Facility:[facility] Start: 07-09-2024 End: 07-09-2024 ambulatory Bradly Turner Facility:[facility] Start: 12-16-2023 End: 12-16-2023 ambulatory Luis Vasquez Facility:[facility] Start: 07-09-2023 End: 07-09-2023 ambulatory [facility] Work Phone: Start: 07-09-2023 End: 07-09-2023 Patient encounter procedure [facility] Start: 11-23-2022 End: 11-23-2022 ambulatory [facility] Work Phone: Start: 11-23-2022 End: 11-23-2022 Patient encounter procedure [facility] Work Phone: Start: 08-07-2022 End: 08-07-[address] Olivia Zavala Work Phone: [facility] Work Phone: Start: 08-07-2022 End: 08-07-[address] Olivia Zavala Work Phone: [facility] Start: 07-02-2022 End: 07-02-[address] Olivia Zavala Work Phone: [facility] Work Phone: Start: 07-02-2022 End: 07-02-[address] Olivia Zavala Work Phone: [facility] Start: 06-24-2022 End: 06-24-[address] Olivia Zavala Work Phone: [facility] Start: 06-21-2021 End: 06-21-2021 Patient encounter procedure [facility] Procedures Date Procedure Procedure Detail Performing Clinician Start: 11-23-2022 MRI of brain with contrast Payers Date Payer Category Payer Self-pay [id number] 2012 Private Health Insurance 101 [id number] Medicare MEDICARE PART A B [id number] Unknown [id number] Unknown [id number] Social History Date Type Detail Facility Start: 02-08-2014 End: 06-24-2022 Tobacco smoking status NHIS Unknown if ever smoked [facility] Start: 1945 Sex Assigned At Female [facility] Progress note 07-30-2024 Note Date & Type Note Facility 07-30-2024 Note HNO ID: [id number] Author: MARINA MALIK MD Service: ? Author Type: Physician Type: Progress Notes Filed: 07/30/2024 11:06 Note Text: YONIS Canales is a 78 year old female who presents with complaint of excessive saliva. Patient feels as though she is drooling all the time due to excessive saliva patient has tried medicines such as meclizine that dried her out too much. Patient was also given a medicine by her paradigm asked but apparently was contraindicated due to her age. ROS General Weight loss: No Fatigue: No Night sweats:No Cardiac Chest pain:No Fast heart rate:No Swelling in the feet:No Respiratory Short of breath:No Cough:No Wheezing:No Gastrointestinal Nausea:No Vomiting:No Indigestion:No Past medical history, family history, and social history reviewed. PE There were no vitals taken for this visit. General: Patient is awake, alert, NAD. Voice is normal. Skin: normal Eyes: Extraocular motion and Gaze is normal. Ears: Right external auditory canal is normal. TMJ: normal. Right tympanic membranes normal. Left external auditory canal is normal. Left tympanic membrane normal. Nose: Septum is normal. Turbinates are normal. Nasopharynx:normal Oral Cavity/Oropharynx: Lips normal Dentition normal Tongue normal. Tonsils normal. Palate and uvula normal. Pharynx posterior normal Hypopharynx: Base of tongue normal Pyriform sinus normal. Larynx: Vocal cords normal. Epiglottis normal. Post cricoid normal. Salivary glands: Parotid normal. Submandibular and sublingual normal. Thyroid: normal. Lymphatic/Neck: Lymph nodes normal. Neurologic: Facial nerve normal. ASSESSMENT/PLAN: 1. Excessive salivation - ICD9: 527.7, ICD10: K11.7 Reassure follow-up as needed Marina Malik MD Findings will be communicated to the referring physician via mail or electronic medical record. [facility] [facility] Evaluation note Note Date & Type Note Facility Evaluation note No assessment information availa ble [facility] Work Phone: Evaluation note Note Date & Type Note Facility Evaluation note Diagnosis Onset Date Sensation of fullness in left ear acute [facility] Work Phone: Advance Directives No Advanced Directives Records Found Advance Directive Response Recorded Date/ Time Advance Directives Yes February 08, 2014 4:26pm Living Will Yes February 08 4:26pm Power of Television [employer] Tester Yes February 08, 2014 4:26pm Chief Complaint and Reason for Visit Chief Complaint LEFT EAR PAIN Reason for Visit Sensation of fullnes s in left ear Chief Complaint ATTN IACS SUDDEN HEA RING LOSS IN LEFT EAR Summary Purpose Family History No Family History Records FoundNo Family History Records Found Additional Source Comments Goals (unrecognized section and content) Goals may be documented in a n alternate sectionGoals may be documented in an alternate sectionGoals may be documented in an alternate sectionGoals may be documented in an alternate sectionGoals may be documented in an alternate section Care Teams (unrecognized sec tion and content) Team Status: Active Member Role Status Dates Dr. Olivia Zavala MD Family Provider Active Dr. Olivia Zavala MD Primary Care Provider Active Team Status: Inactive Member Role Status Dates Dr. Olivia Zavala MD Primary Care Provider, [facility] Provider Active Alycia Montiel PA, PA Attending Provider Active Team Status: Inactive Member Role Status Dates Dr. Olivia Zavala MD Primary Care Provider Active CAROLYN Hannah Attending Provider Active Team Status: Inactive Member Role Status Dates Dr. Olivia Zavala MD Primary Care Provider Active Dr. Tyrone Cardoso MD Attending Provider, Lainey knapp Provider Active Team Status: Inactive Member Role Status Dates Dr. Olivia Zavala MD Primary Care Provider, Alona petersen Provider Active INFORMATION SOURCE (unrecogn ized section and content) DATE CREATED AUTHOR 07/14/2024 [facility] DATE CREATED AUTHOR AUTHOR'S CATHLEEN ATION 08/05/2024 [facility] FOR RECORDS PERTAINING TO PATIENTS WHO ARE OR HAVE BEEN ENROLLED IN A CHEMICAL DEPENDENCY/SUBSTANCEABUSE PROGRAM, SOME INFORMATION MAY BE OMITTED. This clinical summary was aggregated from multiple sources. Caution should be exercised in using it in the provision of clinical care. This summary normalizes information from multiple sources, and as a consequence, information in this document may materially change the coding, format and clinical context of patient data. In addition, data may be omitted in some cases. CLINICAL DECISIONS SHOULD BE BASED ON THE PRIMARY CLINICAL RECORDS. [employer] [facility]. provides no warranty or guarantee of the accuracy or completeness of information in this document.
[2024-08-17 09:01] LABS: Bacteria 0 SEEN /hpf (None Seen); Mucous, Urine 0 SEEN /hpf (<or=2+); Red Blood Cells-Urine 0 SEEN /hpf (0-5); White Blood Cells 0 SEEN /hpf (0-5)
[2024-08-17 09:08] LABS: Color, Urine Yellow (Yellow); Glucose, Dipstick Normal (Normal); Ketone-Dipstick Negative (Negative); Leukocyte Esterase-Dipstick Negative /ul (Negative); Nitrite-Dipstick Negative (Negative); Occult Blood-Urine Negative /ul (Negative); Protein-Dipstick 15 mg/dl (Negative); Urine Bilirubin Dipstick Negative (Negative); Urine Clarity Clear (Clear); Urine Urobilinogen Normal (Normal)
[2024-08-17 09:17] LABS: Squamous Epithelial Cells - UA 0-5 SEEN /hpf (5-10)
[2024-08-17 09:25] VITALS: BP 141/71; PULSE 58; RESP 19; TEMP 36.1; O2SAT 97
== END 2024-08-17 09:26 | disposition home or self-care (01) ==
PROVIDERS: Emergency Provider Emergency Medicine; PCP Family Medicine; Visit Provider Emergency Medicine
DX: K59.00 Constipation, unspecified (principal); F17.210 Nicotine dependence, cigarettes, uncomplicated; R10.32 Left lower quadrant pain
CPT/HCPCS: 74176; 80053; 81001; 85025; 96360; 99283; A4216

== ENCOUNTER → 2025-01-12 | Outpatient (CLI) | payer MEDICARE, SELFPAY ==
[2025-01-12 12:24] LABS: Hematocrit 47.1 % (37-47); Hemoglobin 15.3 g/dL (12.0-15.0); Immature Granulocytes Count 0.030 X10^3/uL (0.0-0.0); Mean Corp Hgb Conc 32.5 g/dL (32-36); Mean Corpuscular Volume 92.7 fL (81-99); Mean Platelet Vol. 8.5 fl (6.2-12.0); NRBC Flagged by Analyzer 0 % (0-5); Platelet Count 267 K/mm3 (150-450); RBC Distribution Width CV 12.4 % (11.6-14.6); RBC Distribution Width SD 42.5 fl (35.1-43.9); Red Blood Count 5.08 M/mm3 (4.2-5.4); White Blood Count 7.0 K/mm3 (4.4-11.0)
[2025-01-12 13:28] LABS: AST(SGOT) 25 U/L (<=31); Alanine Aminotransfer ALT/SGPT 31 U/L (<=34); Albumin, Serum 4.2 g/dL (3.4-4.8); Alkaline Phosphatase 92 U/L (35-104); Anion Gap 8 (5-15); BUN 16 mg/dL (4-19); BUN/Creat Ratio 18.1 RATIO (10-20); Calcium,Total 9.7 mg/dL (7.6-11.0); Carbon Dioxide 30.1 mmol/L (21.0-32.0); Chloride 102 mmol/L (98-108); Cholesterol 173 mg/dL (<=200); Globulin 2.2 g/dL (2.2-4.2); Glucose 95 mg/dL (70-99); Low Density Lipoprotein Calc. 97 mg/dL; Potassium 5.0 mmol/L (3.3-5.1); Triglycerides 115 mg/dL; Very Low Density Lipoprotein 23 mg/dL (5-40); Vitamin B12 377 pg/mL (180-914); Vitamin D,25 Hydroxy 23.8 ng/mL (30-100); cholesterol:hdl ratio screen 3.12
[2025-01-14 10:52] LABS: Ferritin 116 ng/mL (22-378); Iron 96 ug/dL (50-170); Iron Binding Capacity,Total 272 ug/dL (250-450); Iron Binding Capacity,Unsat 176 ug/dL (228-428)
[2025-01-15 08:09] LABS: Transferrin 218 mg/dL (192-364)
== END | disposition home or self-care (01) ==
LOC: MFPLAB 10:17
PROVIDERS: PCP Family Medicine; Visit Provider Family Medicine
DX: R71.8 Other abnormality of red blood cells (principal); E78.00 Pure hypercholesterolemia, unspecified; R53.83 Other fatigue; R73.02 Impaired glucose tolerance (oral)
CPT/HCPCS: 36415; 80053; 80061; 82306; 82607; 82728; 83036; 83540; 83550; 84439; 84443; 84466; 85025